=== PATIENT | female | born 1950 | race Caucasian/White ===

== ENCOUNTER → 2016-12-29 | Outpatient (CLI) | payer MEDICARE, OTHER ==
[~2016-12-29] MED LIST: CIPRO500 MG PO; FLUNISOLIDE25 ML; IPRAT-ALBUT 0.5-3 ML INH; LEVAQUIN TAB 5500 MG PO; MEDROL DOSEPAK 24 MG PO; PREDNISONE10 MG PO; PROTONIX 40 MG40 M1 PO; PROVENTIL HFA 61 INH INH; QVAR8.7 G1 INH; SINGULAIR10 MG PO; TESSALON PERLE100 MG PO; VIBRAMYCIN 100100 MG PO; ZANAFLEX2 MG PO
== END ==
LOC: CT 08:30
DX: R59.0 Localized enlarged lymph nodes (principal); R91.8 Other nonspecific abnormal finding of lung field
CPT/HCPCS: 71260; J7050; Q9962

== ENCOUNTER 2017-01-25 02:18 | Emergency (ER) | payer MEDICARE, OTHER | END 2017-01-25 03:30 | disposition left against medical advice (07) | LOC: ER1 02:18 | DX: Z53.21 Procedure and treatment not carried out due to patient leaving prior to being seen by health care provider (principal) ==

== ENCOUNTER → 2021-05-03 | Outpatient (CLI) | payer MEDICARE, OTHER ==
[~2021-05-03] MED LIST changes: +HYDROCODON-ACE1 EAC4 PO
== END ==
LOC: MAMO 14:15
DX: Z12.31 Encounter for screening mammogram for malignant neoplasm of breast (principal)
CPT/HCPCS: 77063; 77067

== ENCOUNTER → 2021-05-20 | Outpatient (CLI) | payer MEDICARE, OTHER | LOC: KOH-I 08:41 | DX: R51.9 Headache, unspecified (principal); R42 Dizziness and giddiness | CPT/HCPCS: 70450 ==

== ENCOUNTER → 2021-07-07 | Outpatient (CLI) | payer MEDICARE, OTHER | LOC: KOH-I 09:47 | DX: M51.17 Intervertebral disc disorders with radiculopathy, lumbosacral region (principal); M48.07 Spinal stenosis, lumbosacral region; M51.36 Other intervertebral disc degeneration, lumbar region; M48.061 Spinal stenosis, lumbar region without neurogenic claudication | CPT/HCPCS: 72148 ==

== ENCOUNTER → 2021-11-10 | Outpatient (CLI) | payer MEDICARE, OTHER | LOC: KOH-I 11-04 11:30 | DX: Z87.891 Personal history of nicotine dependence (principal) | CPT/HCPCS: 71271 ==

== ENCOUNTER 2021-12-04 17:00 | Emergency (ER) | payer MEDICARE, OTHER ==
[2021-12-04 18:44] LABS: RED BLOOD COUNT 4.13 M/UL (4.00-5.10); WHITE BLOOD COUNT 11.4 K/UL (4.5-11.0)
[2021-12-04 18:45] LABS: BUN/CREATININE RATIO 18 (0-10)
== END 2021-12-04 21:16 | disposition home or self-care (01) ==
LOC: ER1 17:00
PROVIDERS: Physician Assistant
DX: R55 Syncope and collapse (principal); M25.551 Pain in right hip; M54.50 Low back pain, unspecified; F17.210 Nicotine dependence, cigarettes, uncomplicated; Z88.1 Allergy status to other antibiotic agents
CPT/HCPCS: 70450; 71045; 72100; 73502; 80053; 82272; 82550; 82553; 84484; 85025; 93005; 99284; J7030; Q9967

== ENCOUNTER → 2022-03-14 | Outpatient (CLI) | payer MEDICARE, OTHER | LOC: EXRD 13:00 | DX: Z13.820 Encounter for screening for osteoporosis (principal); M54.89 Other dorsalgia; M81.0 Age-related osteoporosis without current pathological fracture | CPT/HCPCS: 77080 ==